=== PATIENT | male | born 1960 | race Caucasian/White ===

== ENCOUNTER 2021-12-25 07:29 | Day surgery (SDC) | payer OTHER ==
[2021-12-23 11:28] VITALS: BMI 26.2
[2021-12-25] MEDS ORDERED: TROPICAMIDE 1% OPHTH SOLN 15 ML BOTTLE ONE (07:43)
[2021-12-25] MEDS ORDERED: CIPROFLOXACIN 0.3% EYE DROPS 5 ML BOTTLE ONE (07:43)
[2021-12-25] MEDS ORDERED: PHENYLEPHRINE 2.5% OPHTH SOLN 15 ML BOTTLE ONE (07:43)
[2021-12-25] MEDS ORDERED: CYCLOPENTOLATE 2% OPHTH SOLN 2 ML BOTTLE ONE (07:43)
[2021-12-25] MEDS ORDERED: TROPICAMIDE 1% OPHTH SOLN 15 ML BOTTLE OD ONE ×3 (08:00→08:10)
[2021-12-25] MEDS ORDERED: CYCLOPENTOLATE 2% OPHTH SOLN 2 ML BOTTLE OD ONE ×3 (08:00→08:10)
[2021-12-25] MEDS ORDERED: CIPROFLOXACIN HCL 0.3% OPHTH 2.5ML BOTTLE OD ONE ×3 (08:00→08:10)
[2021-12-25] MEDS ORDERED: PHENYLEPHRINE 2.5% OPHTH SOLN 15 ML BOTTLE OD ONE ×3 (08:00→08:10)
[2021-12-25] MEDS ORDERED: TETRACAINE 0.5% OPHTH SOLN 2 ML BOTTLE ONE (09:21)
[2021-12-25] MEDS ORDERED: NEO/POLYMYX B SULF/DEXAMETH OPHTHALMIC 5ML BOTTLE ONE (09:21)
[2021-12-25] MEDS ORDERED: BSS (NA/CA/MG/K) BALANCED SALT SOLUTION OPHTH SOLN 15 ML BOTTLE ONE (09:21)
[2021-12-25] MEDS ORDERED: CARBACHOL 0.01% INTRA-OCULAR 1.5 ML VIAL ONE (09:21)
[2021-12-25] MEDS ORDERED: LIDOCAINE 1% P/F 10 MG/ML VIAL ONE (09:21)
[2021-12-25] MEDS ORDERED: MIDAZOLAM HCL 2 MG/2 ML SINGLE DOSE VIAL ONE (09:29)
[2021-12-25] MEDS ORDERED: ONDANSETRON 4 MG/2 ML VIAL ONE (09:31)
[2021-12-25 09:53] VITALS: TEMP 97.1
[2021-12-25 10:18] VITALS: BP 110/68; PULSE 64
== END 2021-12-25 10:32 | disposition home or self-care (01) ==
LOC: FASU 07:29
PROVIDERS: ATTEND Ophthalmology
PROC: 08RJ3JZ Replacement of Right Lens with Synthetic Substitute, Percutaneous Approach (ICD-10-PCS; principal; 2021-12-25 09:33)
DX: H26.8 Other specified cataract (principal)
CPT/HCPCS: 66984; V2632